=== PATIENT | male | born 1970 | race Caucasian/White ===

== ENCOUNTER 2023-09-02 23:23 | Emergency (ER) | payer OTHER, SELFPAY ==
[2023-09-02 23:39] VITALS: BP 170/115
--- NOTE | 2023-09-03 00:40 | ED.GENMED ---
Addendum entered and electronically signed by Koko Fernández DO 09/03/23 01:49:
Update, patient appears comfortable his calf is soft, no paresthesias, do not believe this represents compartment syndrome now, will have the patient rest elevate his leg, NSAIDs, return to the ER for worsening symptoms
Original Note:
History of Present Illness
General
Chief Complaint: DVT/Possible Blood Clot
Source: patient
Exam Limitations: none
Time Seen by Provider: 09/03/23 00:21
Nursing documentation reviewed up to this point in time: agreed with
Travel History
Have you had any contact with someone who has COVID-19?: No
Do you have any symptoms of coronavirus? Fever > 100 degrees, chills, cough, shortness of breath, sore throat, loss of taste or smell, muscle aches, or headache?: No
History of Present Illness
History of Present Illness:
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
history of DVT PE does have a history of CAD apparently, no pain into his thigh no pain into his leg no recent travel
Past History
Past History
ED Past Medical History: CAD
ED Past Surgical History: Orthopedic
Social History
Tobacco: Smoker
Alcohol: Occasional
Drug: None
Personal:
Living: with family
Employment: Employed
Family History
Family History: Hypertension
Review of Systems
Review of Systems
All Other Systems: Not applicable
Constitutional: Denies fever or fatigue
EENT: Reports no symptoms
Respiratory: Reports no symptoms; Denies cough
Cardiac: Reports no symptoms; Denies chest pain
ABD/GI: Reports no symptoms
Musculoskeletal: Reports muscle stiffness; Denies edema
Neurological: Reports no symptoms
Endocrine: Reports no symptoms
Phy Exam
Physical Exam
Physical Exam:
Physical Exam
General: no apparent distress, not acutely ill
Neck: No jaundice
Heart: s1/s2 regular rate and rhythm, no murmur. equal radial pulses.
Lungs: no acute respiratory distress. clear bilaterally
Neuro: alert and oriented. no focal neurological deficits
Skin: no rash
Psychiatric: well kept. interactive and cooperative
Extremities: Asymmetric swelling of the right calf compared to the left distal pulse intact no warmth
Course
Orders/Labs/Results
Orders:
Orders
09/03/23 00:21
US Periph Venous LOWER Ext RT Urgent
Comment:
Reason For Exam: Swelling pain
Vital Signs
Initial and Last Documented VS:
Initial Vital Signs
Temp Pulse Resp BP
98.5 F 83 16 170/115
09/02/23 23:39 09/02/23 23:39 09/02/23 23:39 09/02/23 23:39
Last Documented Vital Signs
Temp Pulse Resp BP
98.5 F 83 16 170/115
09/02/23 23:39 09/02/23 23:39 09/02/23 23:39 09/02/23 23:39
MDM/Problems Addressed
Differential Diagnosis Includes:
DVT strain contusion Wei's cyst no signs of cellulitis no signs of arterial occlusion
MDM/Problems Addressed:
Calf pain
Chronic conditions affecting care: CAD
Acute Exacerbation and/or Progression of Chronic Illness: CAD
*Radiology
Radiology exam reviewed: preliminary read by ED provider
*Pulse Oximetry
Patient hypoxic: no
*Critical Care Note
Total Time (30-74mins, 75-104mins- exclusive of procedures): Not Applicable
Update Note
Update Note:
Update Doppler report noted will start on NSAIDs
ED Attending Note
-
Portions of this chart may have been created with voice recognition software.� Occasional wrong word or��sound alike� substitutions may have occurred due to the inherent limitations of voice recognition software.
Discharge Plan
Departure
Patient Disposition: Home (Routine Discharge)
Date of Disposition: 09/03/23
Time of Disposition: 01:39
Patient with high blood pressure during this ER visit?: No
Condition: Good
Discharge Problem:
Calf hematoma
Instructions: Hematoma
Prescriptions:
New
ibuprofen 600 mg tablet
600 mg PO Q6H PRN (Reason: Pain) Qty: 20 0RF
No Action
aspirin 81 MG tablet,delayed release (DR/EC)
81 mg PO DAILY
Referrals:
Mally Thomas MD [Family Provider] - Next open appointment
Activity Restrictions/Additional Instructions:
Rest elevate your leg, start ibuprofen every 6 hours follow-up with your family doctor
Interventions
Interventions:
*Risk Screen - Suicide Last Done: 09/03/23 01:03
*General Assessment Last Done: 09/03/23 01:03
*Neglect/Abuse Screening Last Done: 09/03/23 01:03
ED- Cardiac Assessment Last Done: 09/03/23 00:38
ED- Pulmonary Assessment Last Done: 09/03/23 00:38
ED-Peripheral Vascular Assessment Last Done: 09/03/23 00:38
ED-Skin Assessment Last Done: 09/03/23 00:38
[2023-09-03] MEDS: MOTRIN 600 MG PO (01:46)
[2023-09-03 01:50] VITALS: BP 165/95
== END 2023-09-03 02:03 | disposition home or self-care (01) ==
LOC: EMR 23:23
PROVIDERS: EMERGENCY PHYSICIAN Emergency Medicine; FAMILY PHYSICIAN Student in an Organized Health Care Education/Training Program
DX: S80.11XA Contusion of right lower leg, initial encounter (principal); X58.XXXA Exposure to other specified factors, initial encounter; M79.661 Pain in right lower leg; F17.200 Nicotine dependence, unspecified, uncomplicated; I25.10 Atherosclerotic heart disease of native coronary artery without angina pectoris
CPT/HCPCS: 99284; 93971

== ENCOUNTER 2023-09-04 16:49 | Emergency (ER) | payer OTHER, SELFPAY ==
[2023-09-04 16:59] VITALS: BP 173/103
--- NOTE | 2023-09-04 18:20 | ED.GENMED ---
History of Present Illness
General
Chief Complaint: Musculo-Skeletal Complaint
Source: patient, spouse and family
Exam Limitations: none
Time Seen by Provider: 09/04/23 17:31
Nursing documentation reviewed up to this point in time: agreed with
Travel History
Have you had any contact with someone who has COVID-19?: No
Do you have any symptoms of coronavirus? Fever > 100 degrees, chills, cough, shortness of breath, sore throat, loss of taste or smell, muscle aches, or headache?: No
History of Present Illness
History of Present Illness:
52-year-old male with Jamel history of thyroid disorder, heart disease presenting to the emergency department today with concerns of ongoing swelling discomfort to the right calf diagnosed with potential mild muscle injury with hematoma formation
a few days ago. Advised to rest ice compress and elevate. He has been trying to this at home but has had some worsening of symptoms. Denies any chest pain shortness of breath any redness or warmth.
Past History
Past History
ED Past Medical History: CAD
ED Past Surgical History: Orthopedic
Social History
Tobacco: Smoker
Alcohol: Occasional
Drug: None
Personal:
Living: with family
Employment: Employed
Family History
Family History: Hypertension
Review of Systems
Review of Systems
Allergies reviewed?: Yes
All Other Systems: ROS reviewed and negative except as documented in HPI and ROS
Phy Exam
Physical Exam
Physical Exam:
GENERAL: Alert , in no apparent distress
EYE: pupils equal and reactive
NECK: Supple, no significant adenopathy.
ENT: o/p clr, mmm.
CARDIAC: Regular rate and rhythm .
LUNGS: Clear breath sounds bilaterally, no acute respiratory distress, no wheezes/rales/rhonchi
ABDOMEN: Soft, without focal tenderness, no r/g, no cvat
NEUROLOGICAL: Alert and oriented, no focal neuro deficits
SKIN: Warm and dry, skin intact.
MUSCULOSKELETAL: Swelling to the right lower extremity from the level of the knee and distal no redness or warmth, well perfused.
PSYCH: Normal and appropriate interaction.
Course
Orders/Labs/Results
Orders:
Orders
09/04/23 18:41
Crutches-Treatment ONCE
Vital Signs
Initial and Last Documented VS:
Initial Vital Signs
Temp Pulse Resp Pulse Ox
98.7 F 89 18 99
09/04/23 16:56 09/04/23 16:56 09/04/23 16:56 09/04/23 16:56
Last Documented Vital Signs
Temp Pulse Resp BP Pulse Ox
98.7 F 89 18 173/103 99
09/04/23 16:56 09/04/23 16:56 09/04/23 16:56 09/04/23 16:59 09/04/23 16:56
MDM/Problems Addressed
MDM/Problems Addressed:
52-year-old male presenting to the emergency department today with concerns of right-sided calf swelling discomfort ongoing to the past few days was here at the onset of symptoms had an ultrasound at the time no signs of DVT but did show likely
hematoma. Was advised to rest ice compress and elevate but has not had improvement over the past few days which prompted come back to the ER. Here he is in no distress has normal distal pulses does not have any significant poikilothermia,
paresthesia, pallor. Normal skin tone. No evidence of compartment syndrome. Able to range at the ankle normal cap refill distally. No signs of emergent pathology. Ultrasound ruling out DVT just a few days ago. Stable for outpatient management
advised for close outpatient follow-up as needed. Return precautions given.
*Critical Care Note
Total Time (30-74mins, 75-104mins- exclusive of procedures): Not Applicable
ED Attending Note
-
Portions of this chart may have been created with voice recognition software.� Occasional wrong word or��sound alike� substitutions may have occurred due to the inherent limitations of voice recognition software.
Discharge Plan
Departure
Patient Disposition: Home (Routine Discharge)
Date of Disposition: 09/04/23
Time of Disposition: 18:41
Patient with high blood pressure during this ER visit?: No
Condition: Good
Covid-19: Not Applicable
Discharge Problem:
Leg swelling
Instructions: Muscle and Bone Pain (DC)
Prescriptions:
New
oxycodone-acetaminophen [Percocet] 5-325 mg tablet
1 tab PO Q8H PRN (Reason: Pain) Qty: 7 0RF
No Action
aspirin 81 MG tablet,delayed release (DR/EC)
81 mg PO DAILY
ibuprofen 600 mg tablet
600 mg PO Q6H PRN (Reason: Pain) Qty: 20 0RF
Referrals:
Mally Thomas MD [Family Provider] -
Pablo Unger MD [Active] - Follow up in 5-7 days
Stand Alone Forms: Return to Work
Activity Restrictions/Additional Instructions:
You came to the emergency department today with concerns of worsening swelling to your right leg. Here you had a reassuring examination without signs of compartment syndrome. Please elevate over the next few days and use compression stockings when
you are not elevated. Please use the crutches to take some stress off of your calf. Please follow closely with orthopedics as needed. Return to the emergency department for any worsening, new or concerning symptoms.
Interventions
Interventions:
*Risk Screen - Suicide Last Done: 09/04/23 16:56
*General Assessment Last Done: 09/04/23 16:56
*Neglect/Abuse Screening Last Done: 09/04/23 16:56
*ED COVID-19 Vaccine History Last Done: 09/04/23 17:15
ED-Musculoskeletal Assessment Last Done: 09/04/23 17:15
[2023-09-04] MEDS: PERCOCET 5/325 1 TABLET PO (18:58)
== END 2023-09-04 18:50 | disposition home or self-care (01) ==
LOC: EMR 16:49
PROVIDERS: EMERGENCY PHYSICIAN Emergency Medicine; FAMILY PHYSICIAN Student in an Organized Health Care Education/Training Program
DX: M79.89 Other specified soft tissue disorders (principal); M79.661 Pain in right lower leg; E07.9 Disorder of thyroid, unspecified; I25.10 Atherosclerotic heart disease of native coronary artery without angina pectoris; F17.200 Nicotine dependence, unspecified, uncomplicated; I25.2 Old myocardial infarction
CPT/HCPCS: 99283